=== PATIENT | male | born 1985 | race Caucasian/White ===

== ENCOUNTER 2019-12-14 20:21 | Emergency (ER) | payer SELFPAY ==
[~2019-12-14] VITALS: Ht 175.3 cm; Wt 66.2 kg
[2019-12-14 20:44] VITALS: BP 143/90
--- NOTE | 2019-12-14 20:45 | NUR ---
C/O HEADACHE, BODYACHE, FATIGUE X 2 DAYS--- ABSCESS RIGHT 3RD DIGIT KNUCKLE 3 DAYS DENIES N/V/D--FULL CLEAR SPEECH, DENIES ETOH/DRUG ABUSE
--- NOTE | 2019-12-14 20:49 | NUR ---
PT TAKEN TO BED 7
[2019-12-14] MEDS ORDERED: KETOROLAC 30 MG/ML VIAL IVP ONE (21:15)
[2019-12-14] MEDS ORDERED: NACL 0.9% 1,000 ML IV ONE (21:15)
--- NOTE | 2019-12-14 23:18 | NUR ---
Dr. Jeong examining patient
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
--- NOTE | 2019-12-14 23:20 | NUR ---
THIERRY LONG AT BEDSIDE DOING I&D PROCEDURE.
[2019-12-14] MEDS ORDERED: BACITRACIN OINT 500 UNITS/GM PKT TP ONE ×2 (23:22→23:30)
[2019-12-14] MEDS ORDERED: MORPHINE SULFATE 4 MG/ML SYR IVP ONE (23:25)
[2019-12-14] MEDS ORDERED: ONDANSETRON 4 MG/2 ML VIAL IVP ONE (23:25)
[2019-12-15 00:09] VITALS: BP 115/79
--- NOTE | 2019-12-15 00:09 | NUR ---
Patient discharged with v/s stable. Written and verbal after care instructions given and explained. Patient alert, oriented and verbalized understanding of instructions. Ambulatory with steady gait. All questions addressed prior to discharge. ID band removed. Patient advised to follow up with PMD. Rx of AUGMENTIN/NAPROSYN given. Patient educated on indication of medication including possible reaction and side effects. Opportunity to ask questions provided and answered.
== END 2019-12-15 00:09 | disposition home or self-care (01) ==
LOC: MED 20:21
DX: L02.511 Cutaneous abscess of right hand (principal); J02.9 Acute pharyngitis, unspecified; R51 Headache
CPT/HCPCS: 26010; 87804; 90471; 90715; 96361; 96374; 96375; 99284; J1885; J2270; J2405; J7030

== ENCOUNTER 2020-09-03 12:40 | Inpatient (IN) | payer MEDICAID, SELFPAY ==
[~2020-09-03] VITALS: Ht 172.7 cm; Wt 67.6 kg
[2020-09-03] VITALS (26 sets, daily range): BP systolic 111–150; BP diastolic 67–87
--- NOTE | 2020-09-03 12:49 | NUR ---
PT TAKEN TO BED 4.
--- NOTE | 2020-09-03 13:00 | NUR ---
DR. DE LUNA AT BEDSIDE.
[2020-09-03] MEDS ORDERED: PHENobarbital 65 MG/ML VIAL IV STA ×2 (13:08→15:19)
[2020-09-03] MEDS ORDERED: THIAMINE 200 MG/2 ML VIAL IM STA (13:08)
[2020-09-03] MEDS ORDERED: MULTIVIT/MIN/CA/FE/FA 1 TAB PO STA (13:08)
[2020-09-03] MEDS ORDERED: LACTATED RINGERS 2,000 ML IV STA (13:08)
[2020-09-03] MEDS ORDERED: chlordiazePOXIDE 25 MG CAP PO STA (13:08)
--- NOTE | 2020-09-03 13:15 | NUR ---
35 Y/M PRESENTS TO ED C C/O HEMATURIA, UPPER ABDOMINAL PAIN 8/10 SHARP PAIN, AND MCKENNA LOWER BACK PAIN SINCE YESTERDAY. PT ALSO REPORTS NAUSEA, CHILLS, AND BODY ACHE. DENIES COUGH, FEVER, SOB, CP, SICK CONTACT, BURNING SENSATION/FREQUENCY/URGENCY OF URINATION, PENILE DISCHARGE. MILD CVAT MCKENNA. PT REPORTS LAST DRINK X 4 DAYS AGO, PT REPORTS DRINKING ONE WHOLE BOTTLE OF WHISKEY. DENIES DRUGS, LAST USE METH X 1 MONTH AGO. PMH: ALCOHOLISM MEDS: NA
--- NOTE | 2020-09-03 13:30 | NUR ---
XR AT BEDSIDE.
--- NOTE | 2020-09-03 13:35 | NUR ---
PT TAKEN TO CT VIA WHEELCHAIR.
[2020-09-03 13:39] LABS: HEMOGLOBIN 16.4 g/dL (12.0-18.0); MEAN CORPUSCULAR HEMOGLOBIN 35 pg (27-31); MEAN CORPUSCULAR HGB CONC 35 g/dL (33-37); MEAN CORPUSCULAR VOLUME 99.2 fL (80-94); PLATELET COUNT (AUTO) 83 K/uL (140-450); RED BLOOD CELL COUNT(AUTO) 4.74 MIL/uL (4.20-6.10); RED CELL DISTRIBUTION WIDTH 13.2 % (11.6-13.7); WHITE BLOOD COUNT (AUTO) 8.1 K/uL (4.8-10.8)
--- NOTE | 2020-09-03 13:52 | NUR ---
RAPID AND PCR COVID TESTS DONE AND WALKED TO LAB
[2020-09-03] MEDS ORDERED: PHENOBARBITAL IV SCH (14:00)
[2020-09-03] MEDS ORDERED: NACL 0.9% IV SCH (14:00)
[2020-09-03 14:12] LABS: APPEARANCE,URINE CLEAR (CLEAR); BILIRUBIN,URINE 2+ (NEGATIVE); BLOOD, URINE TRACE-I (NEGATIVE); COLOR,URINE AMBER (YELLOW); LEUKOCYTE ESTERASE ,URINE NEGATIVE (NEGATIVE); NITRITE, URINE NEGATIVE (NEGATIVE); PH,URINE 8.5 (5.0-9.0); UGLUCOSE TRACE (NEGATIVE)
[2020-09-03 14:15] LABS: ALBUMIN 3.9 g/dL (3.4-5.0); MAGNESIUM 1.2 mg/dL (1.8-2.4); PHOSPHORUS 1.8 mg/dL (2.5-4.9); TOTAL BILIRUBIN 1.9 mg/dL (0.0-1.0)
[2020-09-03 14:24] LABS: WBC,URINE 0-5 /HPF (0-5)
--- NOTE | 2020-09-03 14:35 | NUR ---
PT PLACED ON 3 LEAD ECG AND PULSE OX.
[2020-09-03 14:52] LABS: BARBITURATE, URINE NEGATIVE ng/ml (NEG <=200); BENZODIAZEPINE, URINE POSITIVE ng/mL (NEG <=200); CANNABINOID, URINE NEGATIVE ng/mL (NEG <=50); COCAINE, URINE NEGATIVE ng/mL (NEG <=300); OPIATE, URINE NEGATIVE ng/mL (NEG <=2000); PHENCYCLIDINE SCREEN,URINE NEGATIVE ng/mL (NEG <=25)
[2020-09-03] MEDS ORDERED: LORazepam 2 MG/ML VIAL IVP STA (14:57)
--- NOTE | 2020-09-03 14:58 | NUR ---
ERMD MADE AWARE OF PTS ELEVATED HR OF 130, ERMD WILL PLACE ORDER FOR ATIVAN.
--- NOTE | 2020-09-03 15:06 | NUR ---
ULTRASOUND AT BEDSIDE.
--- NOTE | 2020-09-03 15:15 | NUR ---
ERMD AT BEDSIDE.
[2020-09-03] MEDS ORDERED: LACTATED RINGERS 1,000 ML IV STA (15:19)
[2020-09-03] MEDS ORDERED: POTASSIUM CHLORIDE 10 MEQ TABER PO STA (15:19)
[2020-09-03] MEDS ORDERED: LORazepam 50 MG in NACL 0.9% 25 ML IV PRN (15:20)
[2020-09-03] MEDS ORDERED: MAG SULF 2000 MG/WATER PREMIX 50 ML IV ONE (15:20)
[2020-09-03] MEDS ORDERED: MAG SULF 2000 MG/WATER PREMIX 50 ML IV SCH (15:24)
[2020-09-03] MEDS ORDERED: POTASSIUM CHLORIDE 10 MEQ TABER PO SCH (15:25)
--- NOTE | 2020-09-03 15:29 | NUR ---
PHARMACY CALLED TO PREPARE ATIVAN DRIP.
[2020-09-03] MEDS ORDERED: HYDROcodone/APAP 5/325 MG 1 TAB TAB PO PRN (15:40)
[2020-09-03] MEDS ORDERED: MORPHINE SULFATE 2 MG/ML SYR IVP PRN (15:40)
[2020-09-03] MEDS ORDERED: DOCUSATE SODIUM 100 MG GELCAP PO PRN (15:40)
[2020-09-03] MEDS ORDERED: ACETAMINOPHEN 325 MG TAB PO PRN (15:40)
[2020-09-03] MEDS ORDERED: ONDANSETRON 4 MG/2 ML VIAL IM/IVP PRN (15:40)
--- NOTE | 2020-09-03 15:50 | NUR ---
DR. BUENROSTRO AT BEDSIDE WITH PTS SISTER.
[2020-09-03] MEDS ORDERED: PHENobarbital 130 MG/ML VIAL IV SCH (15:58)
--- NOTE | 2020-09-03 15:59 | NUR ---
LAB AT BEDSIDE.
[2020-09-03] MEDS ORDERED: ONDANSETRON 4 MG/2 ML VIAL IVP STA (16:09)
[2020-09-03] MEDS ORDERED: LORazepam 2 MG/ML VIAL IM/IVP PRN (16:25)
--- NOTE | 2020-09-03 16:40 | NUR ---
RECEIVED REPORT FROM ER NURSE. ADMITTED 35 Y/O MALE FROM HOME WITH A CHIEF COMPLAINT OF HEMATURIA AND ADMITTING DX OF DELIRIUM TREMENS, TACHYCARDIA, AND DEHYDRATION. PT IS AWAKE AND VERBAL WITH CONFUSION AND HALLUCINATIONS. NO C/O PAIN, NO SOB, AFEBRILE, ON ROOM AIR. SKIN IS INTACT. IV SITE ON SHARRON 20G, RFA 20G AND LAC 20G. STARTED ATIVAN DRIP AT 4MG/HR ORDERED.. SAFETY PRECAUTIONS IN PLACE. CALL LIGHT WITHIN REACH.
--- NOTE | 2020-09-03 16:40 | NUR ---
Patient will be admitted to care of DR. ARGUELLES. Admited to ICU. Will go to room 4. Belongings list completed. Report to HEMANT BRAND.
[2020-09-03 16:43] LABS: FIBRINOGEN 317 mg/dL (200-400)
[2020-09-03 16:51] LABS: MAGNESIUM 1.3 mg/dL (1.8-2.4); PHOSPHORUS 1.4 mg/dL (2.5-4.9)
[2020-09-03 17:00] LABS: LYMPHOCYTES % (MANUAL) 12 % (20-46); MONOCYTES % (MANUAL) 3 % (5-12)
[2020-09-03 17:01] LABS: BASOPHILS % (AUTO) 0.4 % (0.0-2.0); EOSINOPHILS % (AUTO) 0.1 % (0.0-4.0); LYMPHOCYTES % (AUTO) 4.5 % (20.5-51.1); MONOCYTES % (AUTO) 4.2 % (1.7-9.3); NEUTROPHILS % (AUTO) 90.8 % (42.2-75.2)
[2020-09-03 17:02] LABS: LYMPHOCYTES # (AUTO) 0.4 K/uL (2.0-11.5); MONOCYTES # (AUTO) 0.3 K/uL (0.8-1.0); NEUTROPHILS # (AUTO) 7.3 K/uL (1.8-7.7)
--- NOTE | 2020-09-03 17:20 | NUR ---
PT IS RESTLESS, ATTEMPTS TO PULL OUT LINES AND ATTEMPTS TO AMBULATE WITHOUT ASSIST. MD NOTIFIED AND ORDERED SOFT WRIST RESTRAINTS
[2020-09-03 17:24] LABS: D-DIMER > 5000 ng/ml (0-400)
[2020-09-03] MEDS: PANTOPRAZOLE 40 MG INJ VIAL IVP SCH (18:00)
--- NOTE | 2020-09-03 18:30 | NUR ---
PT ASLEEP IN BED. NO APPARENT DISTRESS. HR AT 129. ON ATIVAN DRIP
--- NOTE | 2020-09-03 19:16 | NUR ---
RECIEVED ENDORSEMENT FROM DAY SHIFT RN, PT SEDATED RASS -1, PT ST ON MONITOR, PERIPHERAL PULSES PALPABLE, PT SKIN WARM AND DRY, PT AEFBRILE, PT ABDM SOFT AND NON TENDER, ON RM AIR, NPO EXCEPT FOR MEDS, INCONTINENT, PT HAS SHARRON 20 G, RFA 20, LAC 20, RUNNING ATIVAN 4MG/HR, PT SHOWING NO SIGNS OF ACUTE DISTRESS, SAFETY MEASURES IN PLACE, WILL CONTINUE TO MONITOR
[2020-09-03] MEDS ORDERED: POTASSIUM CHLORIDE 40 MEQ, LIDOCAINE MPF 1% 25 MG in NACL 0.9% 250 ML IV PRN (19:40)
[2020-09-03] MEDS ORDERED: SODIUM PHOSPHATE 15 MMOLE in NACL 0.9% 250 ML IV SCH (19:40)
--- NOTE | 2020-09-03 21:30 | NUR ---
ADMINISTERED 2100 MEDICATION OF SODIUM PHOSP 15 MMOLE IN NACL 250ML AT 42.5/H
--- NOTE | 2020-09-03 23:00 | NUR ---
PT HAD INCONTINENT, CHANGED THE PTS SHEETS AND CHUCKS, PT LOW GRADE FEVER, COOLING MEASURES IN PLACE, SAFETY MEASURES IN PLACE, WILL CONTONUE TO MONITOR
[2020-09-04] VITALS (96 sets, daily range): BP systolic 82–154; BP diastolic 56–129
--- NOTE | 2020-09-04 00:30 | NUR ---
STARTED ZOSYN MEDICATION PER ORDERED
[2020-09-04] MEDS ORDERED: PIPERACILLIN/TAZOBACTAM 3.375 GM VIAL IV ONE ×2 (01:04→05:14)
[2020-09-04] MEDS: PIPERACILLIN/TAZOBACTAM 3.375 GM in DEXTROSE 5% 50 ML IV SCH ×4 (01:17→18:18)
[2020-09-04] MEDS: LORazepam 2 MG/ML VIAL IM/IVP PRN (02:31)
--- NOTE | 2020-09-04 02:45 | NUR ---
PT STILL FEBRILE WITH LOW GRADE FEVER 99.4, COOLING MEASURES IN PLACE, PT SHOWING NO SIGNS OF ACUTE DISTRESS, SAFETY MEASURES IN PLACE, WILL CONTINUE TO MONITOR
[2020-09-04 05:27] LABS: BASOPHILS # (AUTO) 0.2 K/uL (0.00-0.22); BASOPHILS % (AUTO) 2.6 % (0.0-2.0); EOSINOPHILS # (AUTO) 0.1 K/uL (0-0.4); EOSINOPHILS % (AUTO) 1.3 % (0.0-4.0); HEMATOCRIT 41.4 % (36-52); LYMPHOCYTES # (AUTO) 0.5 K/uL (2.0-11.5); LYMPHOCYTES % (AUTO) 8.1 % (20.5-51.1); MEAN CORPUSCULAR HEMOGLOBIN 34 pg (27-31); MEAN CORPUSCULAR HGB CONC 34 g/dL (33-37); MEAN CORPUSCULAR VOLUME 101.5 fL (80-94); MONOCYTES # (AUTO) 0.4 K/uL (0.8-1.0); MONOCYTES % (AUTO) 6.8 % (1.7-9.3); NEUTROPHILS # (AUTO) 4.7 K/uL (1.8-7.7); NEUTROPHILS % (AUTO) 81.2 % (42.2-75.2); PLATELET COUNT (AUTO) 79 K/uL (140-450); RED BLOOD CELL COUNT(AUTO) 4.08 MIL/uL (4.20-6.10); RED CELL DISTRIBUTION WIDTH 13.2 % (11.6-13.7); WHITE BLOOD COUNT (AUTO) 5.8 K/uL (4.8-10.8)
--- NOTE | 2020-09-04 05:38 | NUR ---
CHANGED PT LINEN AND PERFORMED MORNIGN CARE, CHARITO NEW BAG OF ZOSYN 3.375 GM
[2020-09-04 06:10] LABS: ANION GAP 15.6 (8-16); CARBON DIOXIDE 25.3 mmol/L (21-32); CREATININE 0.8 mg/dL (0.6-1.3); MAGNESIUM 1.6 mg/dL (1.8-2.4)
[2020-09-04 06:22] LABS: POTASSIUM 2.9 mmol/L (3.5-5.1)
--- NOTE | 2020-09-04 07:16 | NUR ---
ENDORSED TO DAYSHIFT RN FOR CONTINUITY OF CARE
--- NOTE | 2020-09-04 07:17 | NUR ---
RECEIVED REPORT FROM NIGHT NURSE. RECEIVED 35 Y/O MALE FROM HOME WITH A CHIEF COMPLAINT OF HEMATURIA AND ADMITTING DX OF DELIRIUM TREMENS, TACHYCARDIA, AND DEHYDRATION. PT IS ASLEEP IN BED BUT AROUSABLE BY SHAKING. CONFUSED AND MUMBLING WHEN AWAKE. FLACC 0, NO SOB, AFEBRILE, ON ROOM AIR. SKIN IS INTACT. IV SITE ON SHARRON 20G, RFA 20G AND LAC 20G. ON ATIVAN DRIP AT 3MG/HR. SAFETY PRECAUTIONS IN PLACE. CALL LIGHT WITHIN REACH. WILL CONTINUE TO MONITOR
[2020-09-04] MEDS: FOLIC ACID 1 MG TAB PO SCH (09:00)
[2020-09-04] MEDS: MULTIVITAMIN/MINERALS 1 TAB PO SCH (09:00)
[2020-09-04] MEDS: THIAMINE 100 MG TAB PO SCH (09:00)
--- NOTE | 2020-09-04 09:00 | NUR ---
UNABLE TO GIVE PO MEDS. PT SEDATED. RASS -1. ATIVAN INCREASED TO 4.5MG/HR MAINTAIN RASS -2
--- NOTE | 2020-09-04 09:01 | NUR ---
PATIENT HAS BEEN SCREENED AND CATEGORIZED HIGH NUTRITION RISK. PATIENT WILL BE SEEN WITHIN 1-2 DAYS OF ADMISSION. 09/04/20-09/05/[address]
[2020-09-04] MEDS ORDERED: LACTATED RINGERS 1,000 ML IV SCH (09:30)
[2020-09-04] MEDS: PANTOPRAZOLE 40 MG INJ VIAL IVP SCH (09:58)
--- NOTE | 2020-09-04 10:00 | NUR ---
RASS +1. ATIVAN INCREASED TO 5.0MG/HR MAINTAIN RASS -2
[2020-09-04] MEDS ORDERED: MAGNESIUM OXIDE 400 MG TAB GT SCH (10:30)
--- NOTE | 2020-09-04 11:10 | NUR ---
RASS +1. ATIVAN INCREASED TO 5.5MG/HR MAINTAIN RASS -2
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
[2020-09-04] MEDS: POTASSIUM CHL 20MEQ/D5-NS 1,000 ML IV SCH (11:25)
--- NOTE | 2020-09-04 11:30 | NUR ---
NOTIFIED THAT PT IS UNABLE TO TAKE PO MEDS. MD ORDERED TO INSERT NGT AND SHEPHERD CATH
[2020-09-04] MEDS ORDERED: POTASSIUM CHLORIDE 20% 40 MEQ/15 ML UDC GT SCH (12:00)
--- NOTE | 2020-09-04 12:00 | NUR ---
NGT INSERTED. AWAITING XRAY TO CONFIRM PLACEMENT. SHEPHERD ALSO INSERTED
--- NOTE | 2020-09-04 12:19 | NUR ---
DISCHARGE PLANNING: THIS IS A 35 Y/O MALE PATIENT FROM HOME, WHO CAME IN DUE TO ALTERED MENTATION. PAST MEDICAL HISTORY INCLUDE ALCOHOL ABUSE. INITIAL DIAGNOSIS OF DT, TACHYCARDIA, DEHYDRATION. CURRENT LABS INCLUDE WBC 5.8, H/H 14.0/41.4, NA/K 136/2.9, BUN/CREA 10/0.8. UDS SHOWED POSITIVE FOR BENZO. ON ATIVAN DRIP. ON ZOSYN. GI AND PULMO CONSULTS IN PLACE. DC PLAN BACK TO HOME ONCE STABLE. Addendum: 09/05/20 at 1052 by Carmelita Veronica CM STILL ON ATIVAN DRIP AND ZOSYN. COVID PCR IS STILL PENDING. ON ROOM AIR, 02 SAT 99%. Addendum: 09/06/20 at 1447 by Carmelita Veronica CM ATIVAN DRIP STOPPED. STARTED ON REGULAR DIET. DR. LIN STARTED PATIENT ON LIBRIUM. LATEST HR 90.
[2020-09-04] MEDS ORDERED: LORazepam 50 MG in NACL 0.9% 25 ML IV PRN (12:30)
--- NOTE | 2020-09-04 12:30 | NUR ---
RASS +1. ATIVAN INCREASED TO 6.0MG/HR MAINTAIN RASS -2
[2020-09-04] MEDS ORDERED: cloNIDine-TTS1 0.1 MG/24 HR 1 EA PATCH TD SCH (13:00)
--- NOTE | 2020-09-04 15:00 | NUR ---
PT AWAKE IN BED WITH CONFUSION AND MUMBLING, NO APPARENT DISTRESS. NO SOB, FLACC 0
--- NOTE | 2020-09-04 17:30 | NUR ---
PT IN BED WITH CONFUSION AND MUMBLING. WITH ATTEMPT TO GET OUT OF BED UNASSISTED NO APPARENT DISTRESS. NO SOB, FLACC 0 Addendum: 09/04/20 at 1948 by Chevy Stephens RN SOFT WRIST RESTRAINTS IN PLACE
--- NOTE | 2020-09-04 19:15 | NUR ---
RECIEVED ENDORSMENT FROM DAY SHIFT RN, PT CONFUSED AND AGITATED, ST ON MONITOR, PERIPHERAL PULSES PALPABLE, SKIN WARM AND DRY TO TOUCH, PT AFEBRILE, ABD SOFT AND NON TENDER, LUNG CLEAR, PT ON RM AIR, FC IN PLACE, URINE YELLOW AND CLEAR, SOFT WRIST RESTRAINTS BUE, RFA 20 GAUGE ON SALINE LOCK, LAC 20 GAUGE RUNNING ATIVAN AT 6MG/HR AND D5 NS 1000ML KCL 20MEQ AT 100MLS/HR, PT SHOWING NO SIGNS OF ACUTE DISTRESS, SAFETY MEASURES IN PLACE, WILL CONTINUE TO MONITOR Addendum: 09/04/20 at 2359 by Rex Scott RN PT HAS NGT TO LEFT NARE RUNNING JEVITY 1.2 AT 30ML/HR
[2020-09-04] MEDS: LACTULOSE 20 GM/30 ML UDC PO SCH (20:59)
--- NOTE | 2020-09-04 21:15 | NUR ---
REPOSITIONED PT, CHANGED PT LINEN, PT AFEBRILE, ADMINISTERED LACTULOSE 20GM/30ML PER ORDERS, PT SHOWING NO SIGNS OF ACUTE DISTRESS, SAFETY MEASURES IN PLACE, WILL CONTINUE TO MONITOR
--- NOTE | 2020-09-04 21:29 | NUR ---
PHONE CALL TO DR ARGUELLES; VENEER MEASURER IS DR DURAN; UPDATED ON PTS PRESENT CONDITION.MADE AWARE THAT PT IS VERY RESTLESS/AGITATED, TRYING TO GET OUT OF BED; ONE FOOT ALREADY OUT OF BED; WITH BILATERAL SOFT WRIST RESTRAINTS.PT ALSO ON ATIVAN DRIP; MAX DOSE OF 6MG/HR.RASS OF PT AT THIS TIME IS +1 TO +2; DR DURAN SAID HE WILL LOOK UNTO IT AND WILL GET BACK TO [facility].AWAITING
--- NOTE | 2020-09-04 21:40 | NUR ---
PHONE CALL FROM PTS NOK; LAURI LUBIN; UPDATED ON PTS PRESENT CONDITION.QUESTIONS ANSWERED.
[2020-09-04] MEDS ORDERED: PHENobarbital 130 MG/ML VIAL IV SCH (22:10)
--- NOTE | 2020-09-04 23:00 | NUR ---
ADMINISTERED SINCE DOSE OF PHENOBARBITAL 130MG VIAL PER ORDER, PT AFEBRILE, PT RESTING, SHOWING NO SIGNS OF ACUTE DISTRESS, SAFETY MEASURES IN PLACE, WILL CONTINUE TO MONITOR
[2020-09-05] VITALS (96 sets, daily range): BP systolic 49–174; BP diastolic 28–114
--- NOTE | 2020-09-05 00:15 | NUR ---
CHARITO NEW BAG OF ZOSYN 3.375 GM
[2020-09-05] MEDS: PIPERACILLIN/TAZOBACTAM 3.375 GM in DEXTROSE 5% 50 ML IV SCH ×5 (00:24→23:06)
--- NOTE | 2020-09-05 01:30 | NUR ---
REPOSITIONED PT, PT AFEBRILE, PT AGITATED AND CONFUSED, SHOWING NO SIGNS OF ACUTE DISTRESS, SAFETY MEASURES IN PLACE, WILL CONTINUE TO MONITOR
[2020-09-05] MEDS: POTASSIUM CHL 20MEQ/D5-NS 1,000 ML IV SCH ×2 (02:34→14:05)
--- NOTE | 2020-09-05 03:12 | NUR ---
HUNG NEW BAG OF D5 NS 1000ML KCL 20MEQ AT 100MLS/HR
[2020-09-05] MEDS: LORazepam 2 MG/ML VIAL IM/IVP PRN (05:12)
--- NOTE | 2020-09-05 05:55 | NUR ---
REPOSITIONED PT, AM CARE PERFORMED, ORAL CARE GIVEN, HUNG NEW BAG OF ZOSYN 3.375GM AND ATIVAN 6MG/HR, PT SHOWING NO SIGNS OF ACUTE DISTRESS, SAFETY MEASURES IN PLACE, WILL CONTINUE TO MONITOR
[2020-09-05 05:56] LABS: BASOPHILS % (AUTO) 0.7 % (0.0-2.0); EOSINOPHILS # (AUTO) 0.1 K/uL (0-0.4); EOSINOPHILS % (AUTO) 2.8 % (0.0-4.0); HEMATOCRIT 38.4 % (36-52); HEMOGLOBIN 13.1 g/dL (12.0-18.0); LYMPHOCYTES # (AUTO) 0.6 K/uL (2.0-11.5); LYMPHOCYTES % (AUTO) 12.3 % (20.5-51.1); MEAN CORPUSCULAR HEMOGLOBIN 34 pg (27-31); MEAN CORPUSCULAR HGB CONC 34 g/dL (33-37); MEAN CORPUSCULAR VOLUME 100.8 fL (80-94); MONOCYTES # (AUTO) 0.6 K/uL (0.8-1.0); NEUTROPHILS # (AUTO) 3.4 K/uL (1.8-7.7); NEUTROPHILS % (AUTO) 72.2 % (42.2-75.2); PLATELET COUNT (AUTO) 112 K/uL (140-450); RED BLOOD CELL COUNT(AUTO) 3.81 MIL/uL (4.20-6.10); RED CELL DISTRIBUTION WIDTH 13.3 % (11.6-13.7); WHITE BLOOD COUNT (AUTO) 4.8 K/uL (4.8-10.8)
[2020-09-05 06:12] LABS: ANION GAP 15.7 (8-16); CARBON DIOXIDE 21.8 mmol/L (21-32); CREATININE 0.7 mg/dL (0.6-1.3); POTASSIUM 3.5 mmol/L (3.5-5.1)
[2020-09-05 06:17] LABS: MAGNESIUM 1.8 mg/dL (1.8-2.4); PHOSPHORUS 2.2 mg/dL (2.5-4.9)
--- NOTE | 2020-09-05 07:15 | NUR ---
RECEIVED HAND OFF FROM CRUDE OIL DRIVER RN. PT IS RASS -2. PT ON RA WITH AN O2 SAT OF 96%, NO SIGNS OF RESPIRATORY DISTRESS. PT HAS NG TUBE TO LEFT NARE WITH JEVITY 1.2 RUNNING AT 30 ML/HR WITH FWF 100 ML/HR Q 4HR. PT IS SINUS TACH ON THE MONITOR. FOR ACCESS, PT HAS SHARRON 20 AND GABRIELA 20 G, WITH ATIVAN RUNNING AT 6 MG/HR AND D5 NS WITH KCL 20 MEQ IN 1000 L RUNNING AT 100 ML/HR. PT IS ON SOFT WRIST RESTRAINTS. SHEPHERD CATHETER IS IN PLACE. HOB IS 30 DEG, WITH BED IN LOW, LOCKED POSITION. WILL CONTINUE TO MONITOR.
--- NOTE | 2020-09-05 07:25 | NUR ---
ENDORSED TO DAY SHIFT RN FOR CONTINUITY OF CARE
--- NOTE | 2020-09-05 09:00 | NUR ---
MEDICATIONS ADMINISTERED PER ORDER. PT TOLERATED WELL. 5 ML RESIDUAL FOR TUBE FEEDING. PT TEMPERATURE 97.7 TEMPORALLY. VAP ORAL CARE, CHG BATH, AND SHEPHERD CARE PROVIDED. PT HAS 1 BM, SMEAR. PT CLEANED AND CHANGED. PT REPOSITIONED. WILL CONTINUE TO MONITOR. Addendum: 09/05/20 at 1017 by Anne Chi RN RN INCORRECT PT
[2020-09-05] MEDS: FOLIC ACID 1 MG TAB PO SCH (09:32)
[2020-09-05] MEDS: THIAMINE 100 MG TAB PO SCH (09:32)
[2020-09-05] MEDS: MULTIVITAMIN/MINERALS 1 TAB PO SCH (09:33)
[2020-09-05] MEDS: PANTOPRAZOLE 40 MG INJ VIAL IVP SCH (09:33)
[2020-09-05] MEDS: LACTULOSE 20 GM/30 ML UDC PO SCH (09:33)
--- NOTE | 2020-09-05 10:00 | NUR ---
MEDICATIONS ADMINISTERED PER ORDER. PT A&OX4 BUT LETHARGIC. PT HAD 0 ML RESIDUAL FROM NG TUBE FEED. NG TUBE PLACEMENT AUSCULTATED. ORAL CARE AND SHEPHERD CARE ADMINISTERED. PT TEMPERATURE 99.4 AXILLARY. WILL CONTINUE TO MONITOR.
--- NOTE | 2020-09-05 12:05 | NUR ---
DR. DURAN AT BEDSIDE TO SEE PT.
--- NOTE | 2020-09-05 12:30 | NUR ---
MEDICATIONS ADMINISTERED PER ORDER. PT HAD 1 LARGE, WATERY BOWEL MOVEMENT. CLEANED AND CHANGED. TEMPERATURE 99.2 AXILLARY. WILL CONTINUE TO MONITOR.
[2020-09-05] MEDS ORDERED: LORazepam 50 MG in NACL 0.9% 25 ML IV PRN (13:10)
--- NOTE | 2020-09-05 13:30 | NUR ---
09/05/20 RD INITIAL ASSESSMENT COMPLETED PLEASE REFER TO NUTRITION ASSESSMENT UNDER CARE ACTIVITY FOR ESTIMATED NUTRITIONAL NEEDS. 1. RECOMMEND INCREASING JEVITY 1.2 GOAL RATE TO 60 ML/HR X 24 HR WITH PROSOURCE BID -THIS WILL PROVIDE 1848 KCAL AND 110 GM OF PROTEIN WHICH PROVIDES 100% OF KCAL AND PROTEIN. 2. CONTINUE FREE WATER FLUSH [address] TO FOLLOW-UP 2-3 DAYS, HIGH RISK JESSIE SEBASTIAN RD
[2020-09-05] MEDS ORDERED: POTASSIUM CHLORIDE 20% 40 MEQ/15 ML UDC GT SCH ×2 (14:53→18:38)
--- NOTE | 2020-09-05 15:42 | NUR ---
NG TUBE INSERTED TO R NARE, PLACEMENT VERIFIED WITH AUSCULTATION. WILL CONFIRM WITH XRAY. PT EDUCATION PROVIDED, REINFORCEMENT NEEDED. PT TOLERATED WELL. BED IN LOW POSITION. LOADING INSPECTOR IN PLACE. SAFETY MEASURES IN PLACE.
[2020-09-05] MEDS ORDERED: PHENobarbital 130 MG/ML VIAL IV PRN (16:00)
[2020-09-05] MEDS: METOCLOPRAMIDE 10 MG/10 ML SYRP UDC GT SCH (16:30)
--- NOTE | 2020-09-05 16:50 | NUR ---
PT TEMPERATURE 99.0 AXILLARY.
--- NOTE | 2020-09-05 17:29 | NUR ---
PRN PHENOBARBITAL ADMINISTERED DUE TO PT AGITATION AND RESTLESSNESS. WILL CONTINUE TO MONITOR.
--- NOTE | 2020-09-05 19:00 | NUR ---
HANDOFF GIVEN TO NETWORK TECHNICIAN RN FOR CONTINUITY OF CARE.
--- NOTE | 2020-09-05 19:01 | NUR ---
RECIEVED ENDORSMENT FROM DAY SHIFT RN, PT SEDATED, RASS -1, SR ON MONITOR, PERIPHERAL PULSES PALPABLE, SKIN WARM AND DRY TO TOUCH, PT AFEBRILE, ABD SOFT AND NON TENDER, LUNG CLEAR, PT ON RM AIR, NGT LEFT NARE TO TF JEVITY 1.2 AT 40ML/HR FWF 140ML Q6H, FC IN PLACE, URINE YELLOW AND CLEAR, SOFT WRIST RESTRAINTS BUE, RFA 20 GAUGE RUNNING ATIVAN AT 6MG/HR AND D5 NS 1000ML KCL 20MEQ AT 60MLS/HR, PT SHOWING NO SIGNS OF ACUTE DISTRESS, SAFETY MEASURES IN PLACE, WILL CONTINUE TO MONITOR
--- NOTE | 2020-09-05 21:30 | NUR ---
PT RESTING, ADMINISTERED 2100H MEDICATIONS PER ORDERED, PT AFEBRILE, SHOWING NO SIGNS OF ACUTE DISTRESS, SAFETY MEASURESIN PLACE, WILL CONTINUE TO MONITOR
--- NOTE | 2020-09-05 23:32 | NUR ---
PT RESTING, HUNG NEW BAG OF ZOSYN 3.375GM, PT SHOWING NO SIGNS OF ACUTE DISTRESS, SAFETY MEASURES IN PLACE, WILL CONTINUE TO MONITOR
[2020-09-06] VITALS (56 sets, daily range): BP systolic 91–139; BP diastolic 54–89
--- NOTE | 2020-09-06 00:21 | NUR ---
HUNG NEW BAG OF FEEDING JEVITY 1.2 40ML/HR FWF 140 Q6H
[2020-09-06] MEDS: LORazepam 2 MG/ML VIAL IM/IVP PRN (01:31)
--- NOTE | 2020-09-06 02:45 | NUR ---
PT RESTING, AFEBRILE, SHOWING NO SIGNS OF ACUTE DISTRESS, SAFETY MEASURES IN PLACE, WILL CONTINUE TO MONITOR
--- NOTE | 2020-09-06 05:10 | NUR ---
CHARITO PILLAI BAG OF ZOSYN 3.375 GM
[2020-09-06] MEDS: PIPERACILLIN/TAZOBACTAM 3.375 GM in DEXTROSE 5% 50 ML IV SCH ×3 (05:22→17:39)
--- NOTE | 2020-09-06 05:45 | NUR ---
MORNING CARE GIVEN, CHANGED PT LINEN, PT AFEBRILE, SHOWING NO SIGNS OF ACUTE DISTRESS, SAFETY MEASURES IN PLACE, WILL CONTINUE TO MONITOR
[2020-09-06 06:10] LABS: BASOPHILS % (AUTO) 0.7 % (0.0-2.0); EOSINOPHILS # (AUTO) 0.2 K/uL (0-0.4); EOSINOPHILS % (AUTO) 4.7 % (0.0-4.0); HEMOGLOBIN 13.4 g/dL (12.0-18.0); LYMPHOCYTES # (AUTO) 0.8 K/uL (2.0-11.5); LYMPHOCYTES % (AUTO) 16.5 % (20.5-51.1); MEAN CORPUSCULAR HEMOGLOBIN 35 pg (27-31); MEAN CORPUSCULAR HGB CONC 35 g/dL (33-37); MEAN CORPUSCULAR VOLUME 100.7 fL (80-94); MONOCYTES # (AUTO) 0.9 K/uL (0.8-1.0); MONOCYTES % (AUTO) 18.7 % (1.7-9.3); NEUTROPHILS # (AUTO) 2.8 K/uL (1.8-7.7); NEUTROPHILS % (AUTO) 59.4 % (42.2-75.2); PLATELET COUNT (AUTO) 148 K/uL (140-450); RED BLOOD CELL COUNT(AUTO) 3.87 MIL/uL (4.20-6.10); RED CELL DISTRIBUTION WIDTH 13.3 % (11.6-13.7); WHITE BLOOD COUNT (AUTO) 4.7 K/uL (4.8-10.8)
[2020-09-06 06:38] LABS: ANION GAP 12.4 (8-16); CARBON DIOXIDE 26.1 mmol/L (21-32); CREATININE 0.9 mg/dL (0.6-1.3); POTASSIUM 3.5 mmol/L (3.5-5.1)
[2020-09-06 06:52] LABS: MAGNESIUM 1.8 mg/dL (1.8-2.4); PHOSPHORUS 3.4 mg/dL (2.5-4.9)
--- NOTE | 2020-09-06 07:14 | NUR ---
ENDORSED TO DAY SHIFT RN FOR CONTINUITY OF CARE
--- NOTE | 2020-09-06 07:30 | NUR ---
ASSUMED CARE OF PT.INITIAL ASSESSMENT COMPLETED.PT SEDATED;ON ATIVAN DRIP AT 6MG/HR.SR TO ST ON MONITOR.ON ROOM AIR.NO SOB NOTED.WITH NGT TO RT NARES INTACT.PLACEMENT CHECKED.ON TUBE FEEDING JEVITY 1.2 AT 40ML/HR WITH WATER FLUSH ORDERED.W/PERIPHERAL IV TO RT F/A G20 INTACT.FLUSHED.INFUSING ATIVAN DRIP AND ORDERED IVF.WITH SHEPHERD CATHETER TO BSD DRAINING LIGHT JOHN URINE ADEQUATE AMT.SKIN INTACT.DENIES PAIN
[2020-09-06] MEDS: METOCLOPRAMIDE 10 MG/10 ML SYRP UDC GT SCH ×3 (08:27→16:20)
[2020-09-06] MEDS: PANTOPRAZOLE 40 MG INJ VIAL IVP SCH (08:28)
[2020-09-06] MEDS: FOLIC ACID 1 MG TAB PO SCH (08:28)
[2020-09-06] MEDS: MULTIVITAMIN/MINERALS 1 TAB PO SCH (08:28)
[2020-09-06] MEDS: THIAMINE 100 MG TAB PO SCH (08:29)
--- NOTE | 2020-09-06 08:30 | NUR ---
BM NOTED.MODERATE AMT O F SOFT TO LIQUID BROWNISH STOOL.PT CLEANED.ALL LINENS CHANGED/SOILED. WITH BILATERAL SOFT WRIST RESTRAINTS ORDERED.NO INJURIES NOTED
[2020-09-06] MEDS: POTASSIUM CHL 20MEQ/D5-NS 1,000 ML IV SCH ×2 (08:35→11:47)
--- NOTE | 2020-09-06 09:00 | NUR ---
ALL DUE MEDS ADMINISTERED.
--- NOTE | 2020-09-06 10:00 | NUR ---
REPORT GIVEN TO IMAN RN FOR CONTINUITY OF CARE.PT IN STABLE CONDITION
--- NOTE | 2020-09-06 10:15 | NUR ---
REPORT RECEIVED FROM RN DEBBIE, PT AWAKE TALKING TO HIMSELF, ORIENTED X2, REPEATEDLY ASKS FOR FOOD AND DRINK, EDUCATED ON NGT AND NPO, PT VERBALIZES DISSATISFACTION, BUT NOT AGGRESSIVE NOR VIOLENT, PT REMAINS IN RESTRAINTS TO PREVENT PULLING TUBES AND LINES, RESP EVEN UNLABORED ON RA, SKIN WARM DRY COLOR WNL, NGT TO RIGHT NARE, FEEDING ONGOING, ABD SOFT, NON DISTENDED, NO EDEMA, PT MOVES ALL EXT, ATIVAN DRIP AT 6MG/HR, IV SITE WNL, POC REVIEWED, NO IMMEDIATE NEEDS AT THIS TIME, WILL CONTINUE TO MONTIOR.
--- NOTE | 2020-09-06 10:40 | NUR ---
DR Tabatha LIN AT BEDSIDE, ORDERS RECEIVED, WILL CARRY OUT.
[2020-09-06] MEDS ORDERED: LORazepam 2 MG/ML VIAL IM/IVP PRN (10:55)
--- NOTE | 2020-09-06 12:30 | NUR ---
BEDSIDE SWALLOW SCREENING DONE, PT AKHIL CLEAR LIQ WELL, NO TROUBLE SWALLOWING, PO MEDS GIVEN PER ORDER, PT VERBALIZED SAFETY CONTRACT, RESTRAINTS REMOVED, ATIVAN DRIP STOPPED PER ORDER.
[2020-09-06] MEDS: chlordiazePOXIDE 25 MG CAP PO SCH ×2 (12:31→16:21)
--- NOTE | 2020-09-06 12:49 | NUR ---
PT FED HIMSELF JAMES, JUICE, NOW SLEEPING QUIETLY IN NO ACUTE DISTRESS, BED ALARM ON, CALL MILES WITHIN REACH.
[2020-09-06] MEDS ORDERED: chlordiazePOXIDE 25 MG CAP PO SCH (13:00)
--- NOTE | 2020-09-06 13:05 | NUR ---
PT AKHIL 75% OF LUNCH TRAY. PT NOW SLEEPING QUIETLY IN NO ACUTE DISTRESS
--- NOTE | 2020-09-06 14:22 | NUR ---
NGT REMOVED PER ORDER, PT AKHIL WELL, TIP INTACT.
--- NOTE | 2020-09-06 15:20 | NUR ---
PT SITTING UP WATCHING TV, WANTS TO GO TO BATHROOM TO VOID, REMINDED HIM OF SHEPHERD CATH. YELLOW URINE DRAINING TO GRAVITY.
--- NOTE | 2020-09-06 16:00 | NUR ---
BEDSIDE REPORT GIVEN TO ALISTAIR MARCOS
--- NOTE | 2020-09-06 16:10 | NUR ---
RECEIVED PT FROM RN IMAN, PT AWAKE BUT CONFUSED, ABLE TO ANSWER QUESTIONS, PT REQUIRES REORIENTATION TO LOCATION, SKIN INTACT, EYES PERRL 3MM, PLSES PALPABLE UPPER AND LOWER EXTREMITIES, BOWEL SOUNDS ACTIVE, VSS NO SIGNS OF DISTRESS WILL CONTINUE TO MONITOR PT
--- NOTE | 2020-09-06 17:20 | NUR ---
TRANSFERRED PT TO TELE RM 110B REPORT GIVEN TO MARTY
--- NOTE | 2020-09-06 17:20 | NUR ---
RECEIVED REPORT FROM ICU NURSE ALISTAIR, PATIENT IS TRANSFERRED FROM ICU TO [facility] VIA WHEELCHAIR PATIENT IS AAOX2, ON ROOM AIR, AMBULATORY WITH 1 ASSIST, SHEPHERD CATHETER IN PLACE, IV SITES INTACT AND PATENT ON THE RIGHT FOREARM G20, SKIN INTACT, VITAL SIGNS TAKEN BP 106/71, OR 86 RR 18 TEMP 97.9 OXYGEN SATURATION 100. ORIENTED TO ROOM, SAFETY MEASURES IN PLACE AND CALL LIGHT WITHIN REACH. WILL CONTINUE TO MONITOR.
--- NOTE | 2020-09-06 17:25 | NUR ---
MEDICATIONS AND IV FLUIDS RECEIVED FROM ICU .
--- NOTE | 2020-09-06 18:00 | NUR ---
MEDICATION DUE GIVEN ZOSYN 50ML AT A RATE OF 100. INFUSING WELL.
--- NOTE | 2020-09-06 19:26 | NUR ---
ENDORSED TO NIGHT NURSE FOR CONTINUITY OF CARE. PT IS STABLE
--- NOTE | 2020-09-06 19:28 | NUR ---
RECEIVED ENDORSEMENT FROM AM NURSE. PT RECEIVED SLEEPING IN BED, NO ACUTE DISTRESS, NO SOB NOTED. NO S/S OF PAIN OR DISCOMFORT. RESPIRATIONS EVEN AND UNLABORED ON ROOM AIR. CHEST RISE AND FALL SYMMETRICAL. NOTED IV LINE ON RFA 20G, PATENT AND FLUSHED. INFUSING D5NS 20MEQ KCL @ 60 CC/HR. SKIN WARM, DRY AND INTACT. SAFETY MEASURES IN PLACED. CALL LIGHT WITHIN REACH. WILL CONTINUE TO MONITOR.
--- NOTE | 2020-09-06 21:30 | NUR ---
PT GOT UP IN BED TO USE THE RESTROOM, RE-DIRECTED HIM BACK TO BED D/T UNSTEADY GAIT, PT USED BEDPAN INSTEAD. ASSISTED TO MAKE HIMSELF COMFORTABLE IN BED. SAFETY MEASURES IN PLACED. CALL LIGHT IN REACH. WILL CONTINUE TO MONITOR.
--- NOTE | 2020-09-06 23:30 | NUR ---
PT REQUESTED TO HAVE SALTINE CRACKERS AND APPLE JUICE. ABLE TO TOLERATE FOOD WELL. SAFETY MEASURES IN PLACED. CALL LIGHT WITHIN REACH. WILL CONTINUE TO MONITOR.
[2020-09-07] VITALS: BP 85/55
[2020-09-07] MEDS: PIPERACILLIN/TAZOBACTAM 3.375 GM in DEXTROSE 5% 50 ML IV SCH ×4 (00:33→18:47)
--- NOTE | 2020-09-07 01:30 | NUR ---
ROUND CHECK DONE, PT COMFORTABLY SLEEPING IN BED, NO SOB, NO ACUTE DISTRESS NOTED. SAFETY MEASURES IN PLACED. CALL LIGHT WITHIN REACH. WILL CONTINUE TO MONITOR.
--- NOTE | 2020-09-07 03:30 | NUR ---
FREQ ROUNDS CHECK DONE, PT IS SLEEPING COMFORTABLY IN BED WITHOUT APPARENT DISTRESS, NO SOB. NO S/S OF PAIN OR DISCOMFORT. SAFETY MEASURES ION PLACED. CALL LIGHT IN REACH. WILL CONTINUE TO MONITOR.
[2020-09-07 04:00] VITALS: BP 91/60
[2020-09-07] MEDS: POTASSIUM CHL 20MEQ/D5-NS 1,000 ML IV SCH ×2 (04:30→21:07)
--- NOTE | 2020-09-07 05:32 | NUR ---
PT REQUESTED TO DRINK WATER AND EAT SOME CRACKERS. ABLE TO TOLERATED WELL. SAFETY MEASURES IN PLACED. CALL LIGHT IN REACH. WILL CONTINUE TO MONITOR.
[2020-09-07] MEDS: METOCLOPRAMIDE 10 MG/10 ML SYRP UDC GT SCH ×3 (06:30→18:46)
--- NOTE | 2020-09-07 07:20 | NUR ---
ENDORSED PT TO AM SHIFT NURSE IN STABLE CONDITION FOR CONTINUITY OF CARE.
--- NOTE | 2020-09-07 07:32 | NUR ---
REC'D REPORT FROM NIGHT RN, ASSUMED CARE, PT RESTING, IV R.FA SHOWS INFILTRATION, EDEMATOUS. INFUSION STOPPED. WILL CHANGE IV SITE. CALL LIGHT WITHIN REACH, BED LOWEST POSITION.
[2020-09-07 07:46] LABS: BASOPHILS % (AUTO) 1.2 % (0.0-2.0); EOSINOPHILS # (AUTO) 0.2 K/uL (0-0.4); EOSINOPHILS % (AUTO) 5.5 % (0.0-4.0); HEMATOCRIT 36.6 % (36-52); HEMOGLOBIN 12.5 g/dL (12.0-18.0); LYMPHOCYTES # (AUTO) 0.6 K/uL (2.0-11.5); LYMPHOCYTES % (AUTO) 16.7 % (20.5-51.1); MEAN CORPUSCULAR HEMOGLOBIN 34 pg (27-31); MEAN CORPUSCULAR HGB CONC 34 g/dL (33-37); MEAN CORPUSCULAR VOLUME 100.7 fL (80-94); MONOCYTES # (AUTO) 0.7 K/uL (0.8-1.0); NEUTROPHILS % (AUTO) 57.6 % (42.2-75.2); PLATELET COUNT (AUTO) 202 K/uL (140-450); RED BLOOD CELL COUNT(AUTO) 3.64 MIL/uL (4.20-6.10); RED CELL DISTRIBUTION WIDTH 13.3 % (11.6-13.7); WHITE BLOOD COUNT (AUTO) 3.5 K/uL (4.8-10.8)
--- NOTE | 2020-09-07 07:50 | NUR ---
IV L.WRIST 22 G INSERTED, PATENT, TWO ATTEMPTS. D5/NS KCL 20 MEQ INFUSION RE-STARTED. IV ON R. FA 22 G REMOVED, INTACT. PT DENIES PAIN AT R. FOREARM. PT TOLERATED PROCEDURE WELL. LUNGS CLEAR MCKENNA. S1S2 NOTED, ABD SOFT/NONTENDER. NO EDEMA PRESENT ON EXTREMITIES. SKIN INTACT. CALL LIGHT WITHIN REACH, BED LOWEST POSITION. JUICE AND MCKAYLA CRACKER PROVIDED TO PATIENT UPON REQUEST.
[2020-09-07 08:00] VITALS: BP 107/70
[2020-09-07 08:25] LABS: MAGNESIUM 1.6 mg/dL (1.8-2.4); PHOSPHORUS 3.5 mg/dL (2.5-4.9)
[2020-09-07 08:31] LABS: ANION GAP 15.4 (8-16); CARBON DIOXIDE 22.2 mmol/L (21-32); CREATININE 0.8 mg/dL (0.6-1.3); POTASSIUM 3.6 mmol/L (3.5-5.1)
[2020-09-07] MEDS: PANTOPRAZOLE 40 MG INJ VIAL IVP SCH (09:13)
[2020-09-07] MEDS: FOLIC ACID 1 MG TAB PO SCH (09:14)
[2020-09-07] MEDS: MULTIVITAMIN/MINERALS 1 TAB PO SCH (09:14)
[2020-09-07] MEDS: chlordiazePOXIDE 25 MG CAP PO SCH ×3 (09:15→18:47)
[2020-09-07] MEDS: THIAMINE 100 MG TAB PO SCH (09:15)
--- NOTE | 2020-09-07 09:20 | NUR ---
ADMINISTERED MEDICATIONS ORDERED, PROTONIX 40 MG IVP TO L.WRIST IV, FLUSHED AND ADMINISTERED OVER 2 MINUTES FOLLOWED BY 10CC SALINE FLUSH . PT TOLERATED PROCEDURE WELL.
--- NOTE | 2020-09-07 11:58 | NUR ---
PT RESTING COMFORTABLY, ASLEEP, CALL LIGHT WITHIN REACH. BED LOWEST POSITION
[2020-09-07] MEDS ORDERED: CRUSHER, PILL MC ONE (12:07)
--- NOTE | 2020-09-07 12:27 | NUR ---
ADMINISTERED REGLAN PER MD. ORDER, PT TOLERATED PROCEDURE WELL, GAVE MCKAYLA CRACKERS/JUICE PER PT REQUEST.
--- NOTE | 2020-09-07 13:38 | NUR ---
09/07/20 RD FOLLOW UP COMPLETED PLEASE REFER TO NUTRITION ASSESSMENT UNDER CARE ACTIVITY FOR ESTIMATED NUTRITIONAL NEEDS. 1. CONTINUE REGULAR DIET 2. RD PROVIDED NUTRITION EDUCATION ON SOBRIETY. PT ACCEPTED 3. RD TO FOLLOW-UP 3-5 DAYS, MODERATE RISK JESSIE SEBASTIAN, RD
[2020-09-07 16:00] VITALS: BP 123/69
--- NOTE | 2020-09-07 19:40 | NUR ---
RECEIVED PT IN STABLE CONDITION FROM AM NURSE. TELE PT. ASLEEP. AWAKE, ALERT AND ORIENTED X4. NO C/O ANY DISCOMFORT NOR PAIN NOTED. WITH IVF INFUSING WELL. ON THE LT WRIST G#22. CLEAR AND PATENT. SHEPHERD CATHETER IN PLACED. FREQ ROUNDS NEEDED. BED ON LOW POSITION. SIDE RAILS UP X2. CALL LIGHT WITHIN EASY REACH. PLAN OF CARE DISCUSSED AND NEED REINFORCEMENT. WILL CONTINUE TO MONITOR.
[2020-09-07 20:00] VITALS: BP 111/70
[2020-09-07] MEDS: MAG SULF 2000 MG/WATER PREMIX 50 ML IV PRN (21:14)
--- NOTE | 2020-09-07 21:14 | NUR ---
MAGNESIUM LEVEL TODAY 1.6 MAG RIDER 2OOOMG IV STARTED.
--- NOTE | 2020-09-07 23:00 | NUR ---
PT C/O DISCOMFORT FROM SHEPHERD CATHETER. PAGED DR. ARCHULETA. CALLED BACK AND ORDERED TO DC SHEPHERD .
--- NOTE | 2020-09-07 23:30 | NUR ---
CHECKED ON PT TO REMOVE SHEPHERD CATHETER ORDERED. BUT PT IS ASLEEP. WILL DO IT LATER .
[2020-09-08] VITALS: BP 112/75
--- NOTE | 2020-09-08 00:49 | NUR ---
PT AWAKE. REQUESTED FOR SOME SANDWICH. PROVIDED . TOLD PT THAT DR ALREADY HAS ORDER TO DISCONTINUE SHEPHERD CATH. HE SAID HE WILL EAT FIRST AND WILL LET ME KNOW.
[2020-09-08 04:30] VITALS: BP 109/74
[2020-09-08] MEDS: POTASSIUM CHL 20MEQ/D5-NS 1,000 ML IV SCH (04:39)
--- NOTE | 2020-09-08 05:30 | NUR ---
SHEPHERD CATHETER DISCONTINUED MD ORDER. PROVIDE PT WITH URINAL AND INSTRUCTED TO USE IF NEED TO VOID.
[2020-09-08] MEDS: PIPERACILLIN/TAZOBACTAM 3.375 GM in DEXTROSE 5% 50 ML IV SCH ×3 (06:08)
--- NOTE | 2020-09-08 07:30 | NUR ---
RECEIVED PT AAOX3, REORIENTED PT WITH TODAY'S DATE. NO SOB NOTED. NO C/O PAIN AT THIS TIME. IV TO LT FOREARM PATENT AND INTACT. CHEST CLEAR. ABDOMEN SOFT, BOWEL SOUNDS PRESENT. PT VOIDING FREELY ON THE URINAL. INSTRUCTED PT TO CALL FOR ASSISTANCE, CALL LIGHT WITHIN REACH.PT VERBALIZED UNDERSTANDING.
--- NOTE | 2020-09-08 07:40 | NUR ---
CHECKED ON PT. IV ACCESS OUT. HE SAID HE GOT UP TO THE BATHROOM AND VOIDED. INSTRUCTED PT TO CALL ASSISTANCE IF NEED TO GET UP . PT STILL UNSTEADY. A NEW IV ACCESS STARTED ON THE LEFT FA G#22. ENDORSED PT TO AM NURSE IN STABLE CONDITION.
[2020-09-08 08:00] VITALS: BP 113/76
[2020-09-08] MEDS: METOCLOPRAMIDE 10 MG/10 ML SYRP UDC GT SCH (08:04)
[2020-09-08] MEDS: FOLIC ACID 1 MG TAB PO SCH (08:58)
[2020-09-08] MEDS: PANTOPRAZOLE 40 MG INJ VIAL IVP SCH (08:58)
[2020-09-08] MEDS: MULTIVITAMIN/MINERALS 1 TAB PO SCH (08:59)
[2020-09-08] MEDS: chlordiazePOXIDE 25 MG CAP PO SCH (08:59)
[2020-09-08] MEDS: MAG SULF 2000 MG/WATER PREMIX 50 ML IV PRN (09:01)
[2020-09-08] MEDS: THIAMINE 100 MG TAB PO SCH (09:02)
--- NOTE | 2020-09-08 09:35 | NUR ---
P.T. NOTES P.T. EVAL COMPLETED; REFER TO EVAL FOR DETAILS; ENDORSED TO NURSING.
--- NOTE | 2020-09-08 10:00 | NUR ---
PT AMBULATING TO THE BATHROOM WITH MINIMAL ASSIST. VOIDING FREELY.
[2020-09-08] MEDS ORDERED: AMOX-999 PO (10:45)
[2020-09-08] MEDS ORDERED: MAG400 PO (10:45)
[2020-09-08] MEDS ORDERED: MULT-2253 PO (10:45)
--- NOTE | 2020-09-08 12:00 | NUR ---
DISCHARGE INSTRUCTION GIVEN TO PT AT THE BEDSIDE AND LAURI ON THE PHONE, BOTH VERBALIZED UNDERSTANDING. ARM BANDS AND IV REMOVED, CANNULA TIP INTACT. PT WHEELED OUT TO THE FRONT LOBBY IN STABLE CONDITION. NO SOB NOTED. NO COMPLAINTS MADE. PT AND MADE AWARE THAT PRESCRIPTIONS ARE READY TO BE PICKED UP AT [facility].
== END 2020-09-08 12:00 | disposition home or self-care (01) | DRG 282 ==
LOC: MED 12:40 → MIC 15:47 → MTU 09-06 17:15
PROVIDERS: ADMIT Hospitalist; ATTEND Hospitalist
DX: K85.90 Acute pancreatitis without necrosis or infection, unspecified (principal); J69.0 Pneumonitis due to inhalation of food and vomit; E83.42 Hypomagnesemia; G92 Toxic encephalopathy; F10.231 Alcohol dependence with withdrawal delirium; J90 Pleural effusion, not elsewhere classified; R16.0 Hepatomegaly, not elsewhere classified; Z20.828 Contact with and (suspected) exposure to other viral communicable diseases; F17.210 Nicotine dependence, cigarettes, uncomplicated; E87.1 Hypo-osmolality and hyponatremia; E86.0 Dehydration; E87.6 Hypokalemia; K80.20 Calculus of gallbladder without cholecystitis without obstruction; K76.0 Fatty (change of) liver, not elsewhere classified; E83.39 Other disorders of phosphorus metabolism; J44.9 Chronic obstructive pulmonary disease, unspecified; Z71.6 Tobacco abuse counseling
CPT/HCPCS: 36415; 71045; 76705; 80048; 80053; 80305; 81001; 82140; 82550; 83690; 83735; 84100; 84484; 85025; 85379; 85384; 85610; 85730; 87081; 87086; 93005; 96361; 96365; 96367; 96372; 96375; 97161-GP; 99291; 99292; C9113; G0482; J2001; J2060; J2543; J2560; J3411; J3475; J3480; J7030; J7060; J7120; J8597; U0003

== ENCOUNTER 2020-09-09 09:14 | Emergency (ER) | payer MEDICAID, SELFPAY ==
[~2020-09-09] VITALS: Ht 172.7 cm; Wt 71.8 kg
[~2020-09-09 09:14] MED LIST: AMOX-999 PO; MAG400 PO; MULT-2253 PO
[2020-09-09 09:19] VITALS: BP 112/80
[2020-09-09] MEDS ORDERED: LIDOCAINE VISCOUS 2% 20 ML UDC ONE (09:45)
[2020-09-09] MEDS ORDERED: DICYCLOMINE HCL LIQUID 20 MG, ALUMINUM HYD/MAG/SIMETHICONE 30 ML, LIDOCAINE VISCOUS 2% ... PO ONE ×3 (09:45)
[2020-09-09] MEDS ORDERED: ALUMINUM HYD/MAG/SIMETHICONE 30 ML UDC ONE (09:45)
[2020-09-09] MEDS ORDERED: DICYCLOMINE HCL LIQUID 10 MG/5 ML UDC ONE (09:46)
[2020-09-09 10:19] VITALS: BP 125/89
== END 2020-09-09 10:19 | disposition home or self-care (01) ==
LOC: MED 09:14
DX: R10.13 Epigastric pain (principal); F17.200 Nicotine dependence, unspecified, uncomplicated; F15.90 Other stimulant use, unspecified, uncomplicated; Z79.899 Other long term (current) drug therapy
CPT/HCPCS: 99283

== ENCOUNTER 2020-11-10 14:48 | Emergency (ER) | payer MEDICAID, SELFPAY ==
[~2020-11-10] VITALS: Ht 172.7 cm; Wt 69.9 kg
[2020-11-10 14:53] VITALS: BP 160/103
--- NOTE | 2020-11-10 15:44 | NUR ---
PT CALLED TO GO INTO ROOM, WAS NOT IN LOBBY OR TENT. WILL CALL AGAIN LATER.
--- NOTE | 2020-11-10 16:00 | NUR ---
PT CALLED TO GO INTO ROOM, WAS NOT IN LOBBY OR TENT. WILL CALL AGAIN LATER.
--- NOTE | 2020-11-10 16:15 | NUR ---
PT CALLED TO GO INTO ROOM, WAS NOT IN LOBBY OR TENT. ERMD AWARE.
== END 2020-11-10 16:15 | disposition left against medical advice (07) ==
LOC: MED 14:48
DX: K62.5 Hemorrhage of anus and rectum (principal); Z53.21 Procedure and treatment not carried out due to patient leaving prior to being seen by health care provider

== ENCOUNTER 2021-02-15 | Emergency (ER) | payer MEDICAID, SELFPAY | END 2021-02-15 18:21 | disposition home or self-care (01) | DX: K29.70 Gastritis, unspecified, without bleeding (principal); F15.10 Other stimulant abuse, uncomplicated; Z79.899 Other long term (current) drug therapy | CPT/HCPCS: 36415; 80053; 80305; 83690; 85025; 96361; 96374; 99283; G0482; J2405; J7030; Q0162 ==

== ENCOUNTER 2022-02-04 15:15 | Emergency (ER) | payer MEDICAID ==
[~2022-02-04] VITALS: Ht 175.3 cm; Wt 84.4 kg
[~2022-02-04 15:15] MED LIST changes: -MAG400 PO; +MAGN400T61 PO; +ONDA4TAB PO; +POTA10CE85 PO
[2022-02-04 15:22] VITALS: BP 131/82
--- NOTE | 2022-02-04 15:41 | NUR ---
DR. MEJIA BEDSIDE EVALUATING PT
--- NOTE | 2022-02-04 15:44 | NUR ---
37 y/o male, c/o abscess that formed on back of his head on right side since august 2021, since then has been draining blood and pus on and off. per patient he denies any pain at this time, but stated he had pain friday that was 08/05. pt a&ox4. pmh: denies nka med: ibuprofen
[2022-02-04] MEDS ORDERED: LIDOCAINE/EPI 1% 1:100000 20 ML VIAL INJ ONE (15:45)
[2022-02-04 16:45] VITALS: BP 127/75
== END 2022-02-04 16:45 | disposition home or self-care (01) ==
LOC: MED 15:15
DX: S00.03XA Contusion of scalp, initial encounter (principal); L02.811 Cutaneous abscess of head [any part, except face]; Z79.899 Other long term (current) drug therapy; X58.XXXA Exposure to other specified factors, initial encounter; Y93.89 Activity, other specified; Y92.89 Other specified places as the place of occurrence of the external cause; Y99.8 Other external cause status
CPT/HCPCS: 10060; 99284; J2001

== ENCOUNTER 2024-04-20 19:14 | Emergency (ER) | payer MEDICAID ==
[~2024-04-20] VITALS: Ht 167.6 cm; Wt 81.6 kg
[~2024-04-20 19:14] MED LIST changes: +POTA10CA28 PO; -POTA10CE85 PO
[2024-04-20 19:55] VITALS: BP 145/99; PULSE 88; RESP 16; TEMP 98.4; O2SAT 97
== END 2024-04-20 21:30 | disposition home or self-care (01) ==
LOC: MED 19:14
DX: S91.312A Laceration without foreign body, left foot, initial encounter (principal); S01.511A Laceration without foreign body of lip, initial encounter; Z79.1 Long term (current) use of non-steroidal anti-inflammatories (NSAID); Z79.2 Long term (current) use of antibiotics; Z79.899 Other long term (current) drug therapy; W22.8XXA Striking against or struck by other objects, initial encounter; Y93.89 Activity, other specified; Y92.89 Other specified places as the place of occurrence of the external cause; Y99.8 Other external cause status
CPT/HCPCS: 73630; 90471; 90715; 99283

== ENCOUNTER 2024-04-23 13:21 | Emergency (ER) | payer MEDICAID ==
[~2024-04-23] VITALS: Ht 175.3 cm; Wt 81.6 kg
[2024-04-23 13:40] VITALS: BP 134/97; PULSE 84; RESP 16; TEMP 97.3; O2SAT 98
[2024-04-23 14:04] VITALS: BP 134/97; PULSE 84; RESP 16; TEMP 97.3; O2SAT 98
== END 2024-04-23 14:09 | disposition home or self-care (01) ==
LOC: MED 13:21
DX: S91.312D Laceration without foreign body, left foot, subsequent encounter (principal); Z48.00 Encounter for change or removal of nonsurgical wound dressing; Z79.899 Other long term (current) drug therapy; Z79.1 Long term (current) use of non-steroidal anti-inflammatories (NSAID); Z79.2 Long term (current) use of antibiotics; X58.XXXD Exposure to other specified factors, subsequent encounter
CPT/HCPCS: 99283